=== PATIENT | male | born 2000 | race Caucasian/White ===

== ENCOUNTER 2018-11-28 21:03 | Emergency (ER) | payer OTHER ==
[2018-11-28 21:09] VITALS: BP 142/69
--- NOTE | 2018-11-28 21:12 | EDPHY ---
H & P Stated Complaint: Sore throat, trouble swallowing, white patches, fever Time Seen by Provider: 11/28/18 21:10 - Personal History Current Tetanus Diphtheria and Acellular Pertussis (TDAP): Unsure - Medical/Surgical History Hx Asthma: No Hx Chronic Respiratory Disease: No Hx Diabetes: No Hx Cardiac Disease: No Hx Renal Disease: No Hx Cirrhosis: No Hx Alcoholism: No Hx HIV/AIDS: No Hx Splenectomy or Spleen Trauma: No Other PMH: Denies - Social History Smoking Status: Former smoker Constitutional: Initial Vital Signs Temperature (C) 38.0 C 11/28/18 21:06 Heart Rate 98 11/28/18 21:06 Respiratory Rate 17 11/28/18 21:06 Blood Pressure 142/69 H 11/28/18 21:06 O2 Sat (%) 94 11/28/18 21:06 O2 Delivery Mode Nasal Cannula Allergies/Adverse Reactions: No Known Allergies Allergy (Unverified 11/28/18 21:09) Home Medications: Medication Instructions Recorded Cephalexin [Keflex (RX)] 500 mg PO TID #30 cap 11/28/18 Ibuprofen [Motrin] 800 mg PO Q8 #20 tab 11/28/18 Medical Decision Making ED Course/Re-evaluation: CHIEF COMPLAINT: Swollen tonsils HISTORY OF PRESENT ILLNESS: The patient is a 18 y/o male complaining of swollen tonsils, sore throat, and a fever onset 2 days ago. He took amoxicillin from an old script today, but this did not relieve his symptoms. No headache, body aches, lightheadedness, chest pain, heart palpitations, shortness of breath, cough, abdominal pain, urinary or bowel complaints, numbness, paresthesias. REVIEW OF SYSTEMS: A 10 point review of systems was performed and is negative with the exception of the elements mentioned in the history of present illness. PHYSICAL EXAM: HR, BP, O2 Sat, RR. Temp noted General Appearance: Alert, well hydrated, appropriate, and non-toxic appearing. Head: Atraumatic without scalp tenderness or obvious injury Eyes: Pupils equal, round, reactive to light and accommodation, EOMI, no trauma , no injection. Ears: Clear bilaterally, no perforation, normal landmarks Nose: Atraumatic, no rhinorrhea, clear. Throat: Oropharyngeal erythema with bilateral tonsillar enlargement and exudates. No tonsillar abscess. No lesions and mucus membranes moist. Neck: Supple, 2+ carotid upstroke, nontender, no lymphadenopathy. Respiratory: No retractions, no distress, no wheezes, and no accessory muscle use. Lungs are clear to auscultation bilaterally. Cardiovascular: Regular rate and rhythm, no murmurs, rubs, or gallops. Bilateral carotid, radial, dorsalis pedis, and posterior tibial pulses intact. Good capillary refill all extremities. Gastrointestinal: Abdomen is soft, nontender, non-distended, no masses, no rebound, no guarding, no peritoneal signs. Musculoskeletal: Normal active ROM of all extremities, atraumatic. Neurological: Alert, appropriate, and interactive. The patient has normal DTRs and non-focal cranial nerves, motor, sensory, and cerebellar exam. Skin: No rashes, good turgor, no nodules on palpation. Past medical history: Denies Past surgical history: Denies Family history: Denies Social history: Family at bedside, employed DIAGNOSTICS/PROCEDURES/CRITICAL CARE TIME: Not indicated. DIFFERENTIAL DIAGNOSIS: The differential diagnosis for the patient's sore throat included but was not limited to croup, tracheomalacia, bacterial tracheitis, and epiglottitis. MEDICAL DECISION MAKING: The patient is a 18 y/o male presenting with swollen tonsils, sore throat, and a fever onset 2 days ago. On exam the patient has oropharyngeal erythema with bilateral tonsillar enlargement and exudates. There is no sign of a tonsillar abscess. Patient's symptoms are consistent with tonsillitis. Labs and imaging studies are not indicated. 8mg PO Decadron administered. I have also prescribed him Keflex; his first dose was given in the emergency department prior to discharge. I have advised him to return to the ED if his symptoms do not improve or worsen in 2 days. Return precautions provided; patient is comfortable with this plan. Departure - Departure Disposition: Home, Routine, Self-Care Clinical Impression: Tonsillitis Condition: Good Instructions: Tonsillitis (ED) Additional Instructions: 1. Take Keflex as prescribed. 2. If you symptoms do not improve or worsen in 2 days ago, please return to the emergency department without fail. 3. Follow-up with your primary doctor within 72 hours. 4. Return to the Emergency Department for high fever, difficulty swallowing, difficulty tolerating liquids, neck pain or stiffness, shortness of breath or other concerns. 5. Use Tylenol and/or ibuprofen as directed for pain. 6. Drink plenty of fluids. Referrals: [facility],. [Clinic] - As per Instructions Prescriptions: Cephalexin [Keflex (RX)] 500 mg PO TID #30 cap Ibuprofen [Motrin] 800 mg PO Q8 #20 tab Report Scribed for: Yared Lopez Report Scribed by: Ling Toro Date of Report: 11/28/18 Time of Report: 21:12
[2018-11-28] MEDS ORDERED: DEXAMETHASONE 10 MG/ML VIAL PO ONE (21:15)
[2018-11-28] MEDS ORDERED: CEPHALEXIN 500 MG CAP PO ONE (21:15)
== END 2018-11-28 21:30 | disposition home or self-care (01) ==
DX: J03.90 Acute tonsillitis, unspecified (principal); Z87.891 Personal history of nicotine dependence
CPT/HCPCS: J1100